=== PATIENT | male | born 1990 | race Caucasian/White ===

== ENCOUNTER 2017-08-02 14:56 | Emergency (ER) | payer BC ==
[~2017-08-02] VITALS: Ht 185.4 cm; Wt 74.8 kg
--- NOTE | 2017-08-02 15:04 | NUR ---
Dr Hannon at the bedside for MSE.
[2017-08-02] MEDS ORDERED: LORAZEPAM 1 MG TABLET ONE (15:07)
[2017-08-02] MEDS ORDERED: LORAZEPAM 0.5 MG TABLET PO ONE (15:15)
[2017-08-02] MEDS ORDERED: GABA600T2 PO (15:16)
[2017-08-02] MEDS ORDERED: QUET100T PO (15:16)
[2017-08-02 15:25] LABS: BASOPHILS # (AUTO) 0.1 K/uL (0.0-8.0); BASOPHILS % (AUTO) 0.8 % (0.0-2.0); EOSINOPHILS # (AUTO) 0.2 K/uL (0.0-0.7); EOSINOPHILS % (AUTO) 1.9 % (0.0-7.0); HEMATOCRIT 44.8 % (36.7-47.1); HEMOGLOBIN 15.9 g/dL (12.5-16.3); LYMPHOCYTES # (AUTO) 2.6 K/uL (20.0-40.0); LYMPHOCYTES % (AUTO) 30.5 % (20.5-51.5); MEAN CORPUSCULAR HGB CONC 35 g/dL (32.5-36.3); MEAN CORPUSCULAR VOLUME 87.5 fL (73.0-96.2); MONOCYTES % (AUTO) 12.4 % (0.0-11.0); NEUTROPHILS # (AUTO) 4.6 K/uL (1.8-8.9); NEUTROPHILS % (AUTO) 54.4 % (38.5-71.5); PLATELET COUNT (AUTO) 229 K/uL (152-348); RED BLOOD CELL COUNT(AUTO) 5.13 MIL/uL (4.06-5.63); WHITE BLOOD COUNT (AUTO) 8.4 K/uL (3.6-10.2)
[2017-08-02 15:34] LABS: CARBON DIOXIDE 29 mmol/L (21-32); CHLORIDE 99 mmol/L (98-107); CREATININE 1.3 mg/dL (0.6-1.3); GLUCOSE 106 mg/dL (74-106); POTASSIUM 3.7 mmol/L (3.5-5.1); UREA NITROGEN, BLOOD 17 mg/dL (7-18)
[2017-08-02 15:40] LABS: ALANINE AMINOTRANSFERASE 70 U/L (16-63); ALKALINE PHOSPHATASE 73 U/L (50-136); ASPARTATE AMINOTRANSFERASE 61 U/L (15-37); BILIRUBIN,DIRECT 0.2 mg/dL (0.0-0.2); BILIRUBIN,TOTAL 0.9 mg/dL (0.2-1.0); TOTAL PROTEIN, SERUM 7.6 g/dL (6.4-8.2)
[2017-08-02 15:45] LABS: ETHANOL < 3 MG/DL (0-0)
[2017-08-02 15:52] LABS: *BLOOD, URINE 2+ (NEGATIVE); *CLARITY,URINE CLEAR (CLEAR); *COLOR,URINE DARK YELLOW (YELLOW); *KETONES,URINE TRACE (NEGATIVE); *PROTEIN,URINE TRACE (NEGATIVE); *UROBILINOGEN,URINE 0.2 E.U./dl (NORMAL); LEUKOCYTE ESTERASE ,URINE NEGATIVE (NEGATIVE); NITRITE, URINE NEGATIVE (NEGATIVE); UGLUCOSE NEGATIVE (NEGATIVE)
--- NOTE | 2017-08-02 16:03 | NUR ---
Patient is resting comfortably in bed with eyes closed, NAD noted.
[2017-08-02 16:08] LABS: *BILIRUBIN,URIN 1+ (NEGATIVE)
[2017-08-02 16:09] LABS: BACTERIA,URINE NONE SEEN /HPF (NONE SEEN); SQUAMOUS EPITHELIAL CELL,UR FEW /HPF (NONE SEEN); WBC,URINE 0-3 /HPF (0-3)
--- NOTE | 2017-08-02 16:15 | NUR ---
Spoke to , rig manager of [facility]. Pt will be picked up by [facility], ETA 30 min.
[2017-08-02 16:17] LABS: *AMPHETAMINE, URINE POSITIVE (NEGATIVE); *BARBITURATE, URINE POSITIVE (NEGATIVE); *CANNABINOID, URINE POSITIVE (NEGATIVE); *COCCAINE, URINE NEGATIVE (NEGATIVE); *OPIATE, URINE POSITIVE (NEGATIVE); *PHENCYCLIDINE SCREEN,URINE NEGATIVE (NEGATIVE)
--- NOTE | 2017-08-02 16:50 | NUR ---
Patient discharged to [facility] operator in stable conditon. Written and verbal after care instructions given to Pt. Patient verbalizes understanding of instructions.
[2017-08-02 16:51] VITALS: BP 123/70
[2017-08-02 17:47] LABS: ACETAMINOPHEN < 2.0 ug/mL (10-30)
== END 2017-08-02 16:52 | disposition home or self-care (01) ==
LOC: ER 14:56
DX: F15.10 Other stimulant abuse, uncomplicated (principal); Z79.899 Other long term (current) drug therapy
CPT/HCPCS: 36415; 80048; 80076; 80307; 80324; 80345; 80349; 80361; 81001; 85025; 99284; A4663; G0480 ×2; G0481